=== PATIENT | male | born 1960 | race Caucasian/White ===

== ENCOUNTER → 2018-05-28 | Outpatient (CLI) | payer BC ==
[~2018-05-28] MED LIST: IOHEXOL 240 MG/ML 50ML VIAL. ONE; IOHEXOL 300 MG/ML 75 ML VIAL. IV ONE
--- NOTE | 2018-05-28 12:06 | RAD ---
PQRS Compliance statement: One or more of the following individualized dose reduction techniques were utilized for this examination: 1. Automated exposure control. 2. Adjustment of the mA and/or kV according to patient size. 3. Use of iterative reconstruction technique. Indication:ABNORMAL COLONOSCOPY AT COLO/SIGMOID TECHNIQUE: CT abdomen and pelvis with IV contrast with multiplanar reformats. COMPARISON: None FINDINGS: Heart is normal in size. No pericardial or pleural effusion. Clear lung bases. Diffuse hepatic steatosis. No focal hepatic lesion. Spleen, gallbladder, pancreas, adrenals and kidneys are within normal limits. No enlarged retroperitoneal or pelvic adenopathy. Postsurgical changes from repair of the right inguinal hernia. Circumferential wall thickening is seen of the short segment of the sigmoid colon measuring 1 cm in thickness (series 2 image 76). This segment approximately measures 4 cm in length. It is below the the peritoneal reflection an is approximately 9 cm from the anal verge. Normal appendix. Prostate is enlarged measuring 6.3 x 5.0 cm. Urinary bladder is within normal limits. No suspicious bony lesion. IMPRESSION: 1. Sigmoid colon wall thickening as described above suggests stricture or colonic mass. Clinically correlate with colonoscopy findings. 2. Hepatic steatosis. No evidence of metastatic disease. 3. Enlarged prostate. Correlate with physical exam and PSA. Electronically signed by: Kyle Lopez DO (05/28/2018 12:03 PM) [facility]
== END | disposition home or self-care (01) ==
LOC: CT 08:07
PROVIDERS: ATTEND Internal Medicine Gastroenterology
DX: K76.0 Fatty (change of) liver, not elsewhere classified (principal); N40.0 Benign prostatic hyperplasia without lower urinary tract symptoms
CPT/HCPCS: 74177; Q9967